=== PATIENT | female | born 2000 | race Caucasian/White ===

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

== ENCOUNTER 2021-10-29 06:58 | Emergency (ER) | payer MEDICAID ==
[2021-10-29] MEDS ORDERED: cefTRIAXone 1 GM Vial IM ONE (07:49)
[2021-10-29] MEDS ORDERED: Ketorolac 30 MG/ML SDV IM ONE (07:50)
[2021-10-29 09:52] VITALS: BP 136/74; PULSE 72
== END 2021-10-29 08:10 | disposition home or self-care (01) ==
LOC: FB.ED 06:58
DX: L03.115 Cellulitis of right lower limb (principal); T50.901A Poisoning by unspecified drugs, medicaments and biological substances, accidental (unintentional), initial encounter; T24.601A Corrosion of second degree of unspecified site of right lower limb, except ankle and foot, initial encounter; Z72.0 Tobacco use
CPT/HCPCS: 96372; 99283; J0696; J1885

== ENCOUNTER 2023-06-10 07:24 | Emergency (ER) | payer MEDICAID ==
[2023-06-10] MEDS ORDERED: methylPREDNISolone Sodium Succinate 125 MG/2 ML SDV IM ONE (08:07)
[2023-06-10 10:52] VITALS: BP 126/75; PULSE 87
== END 2023-06-10 08:34 | disposition home or self-care (01) ==
LOC: FB.ED 07:24
DX: L50.9 Urticaria, unspecified (principal); F17.210 Nicotine dependence, cigarettes, uncomplicated; E66.9 Obesity, unspecified; Z86.16 Personal history of COVID-19; Z79.899 Other long term (current) drug therapy; Z68.33 Body mass index [BMI] 33.0-33.9, adult
CPT/HCPCS: 96372; 99282; 99283; J2930

== ENCOUNTER 2023-07-24 07:40 | Emergency (ER) | payer MEDICAID ==
[2023-07-24] MEDS: Ibuprofen 400 MG Tab PO ONE (08:25)
[2023-07-24 08:35] LABS: BASOPHILS ABSOLUTE AUTO 0.1 x10-3/uL (0.0-0.1); BASOPHILS PERCENT AUTO 0.6 % (0.2-1.5); EOSINOPHILS ABSOLUTE AUTO 0.2 x10-3/uL (0.0-0.8); EOSINOPHILS PERCENT AUTO 1.4 % (0.6-8.1); HEMATOCRIT 36.8 % (34.2-48.2); LYMPHOCYTES ABSOLUTE AUTO 1.6 x10-3/uL (1.0-4.4); LYMPHOCYTES PERCENT AUTO 12.8 % (18.4-52.1); MEAN CORPUSCULAR HEMOGLOBIN 28.4 pg (23.9-33.9); MEAN CORPUSCULAR HGB CONC 32.6 g/dL (31.9-34.8); MEAN CORPUSCULAR VOLUME 87.1 fL (76.7-100.5); MEAN PLATELET VOLUME 10.3 fL (7.1-12.4); MONOCYTES ABSOLUTE AUTO 0.5 x10-3/uL (0.3-1.0); MONOCYTES PERCENT AUTO 4.3 % (4.4-15.7); NEUTROPHILS ABSOLUTE AUTO 9.8 x10-3/uL (1.5-6.3); NEUTROPHILS PERCENT AUTO 80.9 % (30.8-76.2); PLATELET COUNT,PLT 188 x10(3)uL (151-488); RED BLOOD CELL COUNT 4.23 x10(6)uL (3.60-5.20); RED CELL DISTRIBUTION WIDTH 13.3 % (12.3-16.5); WHITE BLOOD CELL COUNT,WBC 12.2 x10-3/uL (3.0-10.3)
[2023-07-24 08:48] LABS: INFLUENZA A NAA NEGATIVE (NEGATIVE); INFLUENZA B NAA NEGATIVE (NEGATIVE); RESPIRATORY SYNCYTIAL VIR NAA NEGATIVE (NEGATIVE)
[2023-07-24 08:51] LABS: CORONAVIRUS COVID-19 NAA NEGATIVE (NEGATIVE)
[2023-07-24 09:35] VITALS: BP 117/66; PULSE 81
== END 2023-07-24 09:25 | disposition home or self-care (01) ==
LOC: FB.ED 07:40
DX: J40 Bronchitis, not specified as acute or chronic (principal); Z20.822 Contact with and (suspected) exposure to COVID-19; Z86.16 Personal history of COVID-19
CPT/HCPCS: 0241U; 36415; 85025; 86140; 99283; A9270-GY

== ENCOUNTER 2024-03-16 06:23 | Emergency (ER) | payer MEDICAID ==
[2024-03-16 06:41] VITALS: BP 133/78; PULSE 102
== END 2024-03-16 08:28 | disposition home or self-care (01) ==
LOC: FB.ED 06:23
DX: S82.61XA Displaced fracture of lateral malleolus of right fibula, initial encounter for closed fracture (principal); Z86.16 Personal history of COVID-19; F17.210 Nicotine dependence, cigarettes, uncomplicated; W10.8XXA Fall (on) (from) other stairs and steps, initial encounter
CPT/HCPCS: 73610-RT; 99283